=== PATIENT | male | born 1970 | race Caucasian/White ===

== ENCOUNTER 2016-12-28 14:09 | Observation (INO) ==
[~2016-12-28 14:09] MED LIST: ASPIRIN EC 325 MG TABLET PO SCH
--- NOTE | 2016-12-28 14:28 | EKG Report ---
Stationary ECG Study [facility] ER Test Date: 12/28/2016 2:19:27 PM Pat Name: TARAN MCKEON Department: Room: Gender: M Flight Service Agent: : [id number] Requested by: Kevin Theodore Order Number: [id number] Reading MD: NANCY GARZA Intervals [place] Rate: 58 P: 48 FL: 168 QRS: 5 QRSD: 97 T: 31 QT: 396 QTc: 392 Interpretive Statements SINUS BRADYCARDIA NONSPECIFIC T WAVE ABNORMALITY Electronically Signed On 12-28-16 18:01:52 CDT by NANCY GARZA [email or web address]
[2016-12-28] MEDS ORDERED: NITROGLYCERIN SL 0.4 MG TABLET SL PRN (14:54)
[2016-12-28] MEDS ORDERED: ASPIRIN 325 MG TABLET PO STA (14:54)
[2016-12-28] MEDS ORDERED: ENOXAPARIN 100 MG/ML SYRINGE SUBCUT STA (14:54)
[2016-12-28] MEDS ORDERED: ENOXAPARIN 100 MG/ML SYRINGE SUBCUT ONE (14:56)
[2016-12-28] MEDS ORDERED: NITROGLYCERIN 2% OINT 1 INCH/GM PACK TOP ONE (14:57)
[2016-12-28] MEDS ORDERED: ASPIRIN 325 MG TABLET ONE (14:57)
[2016-12-28 15:14] LABS: Basophils % 0.4 % (0.0-0.8); Eosinophils # 0.1 10*3/uL (0.0-0.87); Eosinophils % 0.8 % (0.00-10.9); Hematocrit 43.7 VOL% (42.0-52.0); Hemoglobin 15.7 GM/DL (14.0-18.0); Immature Granulocytes % 0.1 %; Immature Granulocytes Absolute 0.01 #; Lymphocytes # 3.2 10*3/uL (1.4-4.0); Lymphocytes % 40.3 % (21.2-54.2); Mean Corpuscular HGB Conc 35.9 GM/DL (32-36); Mean Corpuscular Hemoglobin 31 PG (27-34); Mean Corpuscular Volume 85.4 FL (87-102); Mean Platelet Volume 9.2 FL (9.6-12.0); Monocytes # 0.6 10*3/uL (0.11-0.8); Monocytes % 7.8 % (1.7-12.7); Neutrophils % 50.6 % (38.7-73.9); Platelet Count 181 T/CUMM (130-400); Red Blood Count 5.12 MC/CUMM (3.8-5.5); Red Cell Distribution Width 12.8 % (9.3-17.3); White Blood Count 7.9 T/CUMM (4-12)
[2016-12-28 15:28] LABS: D-Dimer <= 0.5 MG/L FEU; INR 1.1; PT Patient Result 11.4 SECS
--- NOTE | 2016-12-28 15:31 | XRay Report ---
Portable chest Date: 12/28/2016 Clinical history: Chest pain Comparison: 08/13/2014 Technique: Portable AP sitting chest Findings: The heart is normal in size. Expiratory chest with minimal atelectasis. Chronic volume loss in the distal right clavicle with degenerative changes. Stable mediastinum. Impression: Expiratory chest with minimal atelectasis. PROCEDURE INTERPRETED AT [facility] DEPARTMENT OF RADIOLOGY Final Report Signed by: Dr. Bela You
[2016-12-28] MEDS ORDERED: NITROGLYCERIN SL 0.4 MG TABLET SL ONE (15:32)
[2016-12-28 15:34] LABS: Bilirubin,Total 0.8 MG/DL (0.2-1.0); Calcium 8.5 MG/DL (8.5-10.1); Magnesium 2.2 MG/DL (1.8-2.4); Osmolality,Calculated 278.5 MOS/KG (273-304); Potassium 3.5 MMOL/L (3.5-5.1); Total Protein 6.9 G/DL (6.4-8.3)
[2016-12-28] MEDS ORDERED: ONDANSETRON 4 MG/2 ML VIAL IV PRN (16:05)
[2016-12-28] MEDS ORDERED: MAGNESIUM SULF RIDER 2 GM in PREMIX 1 EACH IV PRN (16:05)
[2016-12-28] MEDS ORDERED: MAGNESIUM SULF RIDER 4 GM in PREMIX 1 EACH IV PRN (16:05)
[2016-12-28] MEDS ORDERED: MORPHINE 2 MG/1 ML SYRINGE IV PRN (16:07)
--- NOTE | 2016-12-28 16:09 | Emergency Department Note ---
Kyle Romero Brittany, am scribing for, and in the presence of, Donaldo Cantu MD 15:14. Pepe Romero Phillip K, MD, personally performed the services described in this documentation, ascribed by Carolyn Wright in my presence, and it is both accurate and complete 609 . Arrival - Arrival Chief Complaint: Arrhythmia/Palpitations Stated Complaint: chest pain,numbness in left side,high bp ED Nursing Triage Note: C/o palpitations and dizziness-onset 0930 this morning. C/o midsternal chest pressure. +SOB and nausea. 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 Patient reports that he was at work climbing stairs when chest pain onset. He describes chest pain as a sharp, stabbing pressure that radiates into his left shoulder, down his left arm. He notes having some bilateral calf pain with numbness and tingling. He states that after resting for 20 minutes he got up and began walking to the [facility]. He states en route he began to become so diaphoretic he soaked his coveralls, he then began to feel weak and numb all over. Patient states that's when he presented to the nurses station and waited for a family member to arrive. Patient states he does have a history of Cardiac Catheterization several years ago and was found to have thickened johnson. He has had no stent placement. Patient at current is still having chest pain. Patient has no other complaint/pain in the ED. Allergies/Adverse Reactions: Allergies Allergy/AdvReac Type Severity Reaction Status Date / Time No Known Allergies Allergy Verified 08/27/16 06:59 Home Medications: Home Medications Medication Instructions Recorded Confirmed Type Lisinopril 20 mg PO DAILY 08/27/16 12/28/16 History Metformin HCl 1,000 mg PO BID 08/27/16 12/28/16 History Multivitamin [Multivitamins] 1 each PO DAILY 08/27/16 12/28/16 History [place]-3 Fatty Acids [Fish Oil 1,000 mg PO DAILY 08/27/16 12/28/16 History Concentrate] Aspirin Tab 325 mg PO DAILY tablet 08/28/16 12/28/16 Rx Pravastatin [Pravachol] 20 mg PO DAILY #30 tablet 08/28/16 12/28/16 Rx glyBURIDE [Diabeta] 5 mg PO BID W/MEALS #60 tablet 08/28/16 12/28/16 Rx Review of System - Review of System 12 point system: reviewed and no additional remarkable complaints except as stated - Review of System Constitutional: Present: diaphoresis, weakness. Absent: chills, fever Eyes: Absent: vision change Head/Ears/Nose/Throat: Present: sore throat. Absent: nasal drainage Respiratory: Present: cough. Absent: respiratory distress Cardiovascular: Present: chest pain Gastrointestinal: Absent: abdominal pain, nausea, vomiting, diarrhea, constipation Genitourinary male: Absent: urgency, dysuria, frequency Musculoskeletal: Present: as per HPI, arm pain, leg pain. Absent: back pain, neck pain Skin: Absent: rash Neurological: Present: headache, numbness, paresthesias Psychiatric: Absent: anxiety, depression Hematological/Lymphatic: Absent: easy bleeding, easy bruising Medical,Surgical,& Family Hx - Medical History Cardio: History of: Hypertension Psychological: No history of: Behavior Problems, Depression Endocrine: History of: Diabetes Mellitus (NIDDM), Dyslipidemia - Surgical History Abdominal Surgeries: Surgical HX of: Appendectomy Orthopedic Surgeries: Surgical HX of;: Orthopedic Surgery (right shoulder) - Family History Family History: Reports;: Family Heart Disease - Social History Smoking Status: Never smoker Frequency of Alcohol Use: None Type of Drug Use: None Exam Vital Signs: Vital Signs Temperature 96.6 F L 12/28/16 14:18 Pulse Rate 66 12/28/16 14:18 Respiratory Rate 18 12/28/16 14:50 Blood Pressure 154/97 12/28/16 14:18 O2 Sat by Pulse Oximetry 96 12/28/16 14:18 - General General appearance: alert, in no apparent distress - Head Head exam: Present: atraumatic, normocephalic, normal inspection - Eye Eye exam: Present: normal appearance, PERRL, EOMI - ENT ENT exam: Present: normal exam, normal oropharynx, mucous membranes moist - Neck Neck exam: Present: normal inspection, full ROM, trachea midline - Chest Chest inspection: Present: normal inspection, symmetric chest wall rise - Respiratory Respiratory exam: Present: normal lung sounds bilaterally. Absent: rales, rhonchi, wheezes - Cardiovascular Cardiovascular exam: Present: regular rate, normal rhythm, normal heart sounds. Absent: murmur, rubs, gallop - Abdominal Exam Abdominal exam: Present: soft, normal bowel sounds. Absent: distention, tenderness - Extremities Exam Extremities exam: Present: full ROM, pedal edema (trace edema to bilateral lower extremities), calf tenderness (bilateral calf tenderness) - Back Exam Back exam: Present: normal inspection - Neurological Exam Neurological exam: Present: alert, oriented X3, CN II-XII intact. Absent: motor sensory deficit - Psychiatric Psychiatric exam: Present: normal affect - Skin Skin exam: Present: warm, dry Course Course Narrative: Patient discussed with Dr. Cerda and he will admit and do a treadmill in the morning. We will get serial isoenzymes tonight. Results - Labs CBC & BMP: 12/28/16 15:01 Lab Results: I have reviewed the patients labs Labs: Laboratory Tests 12/28/16 12/28/16 12/28/16 15:01 15:01 15:01 INR 1.1 PT Patient/Control Mix 11.4 D-Dimer, Quantitative <= 0.5 Sodium 139 Potassium 3.5 Chloride 107 Carbon Dioxide 21 Anion Gap 14.5 BUN 13 Creatinine 0.80 GFR Calculation 138 BUN/Creatinine Ratio 16.00 Glucose 129 H Calculated Osmolality 278.5 Calcium 8.5 Magnesium 2.2 Total Bilirubin 0.80 AST 21 ALT 48 Alkaline Phosphatase 59 Troponin I < 0.015 Total Protein 6.9 Albumin 4.0 Globulin 2.9 Albumin/Globulin Ratio 1.3 Laboratory Tests 12/28/16 15:01 B-Natriuretic Peptide 4 - EKG EKG results: interpreted by ERMD, sinus rhythm (sinus bradycardia with nonspecific ST-T changes) - Diagnostic Findings Procedure: Chest x-ray: report reviewed by me (Expiratory chest with minimal atelectasis.) Disposition Clinical Impression: Chest pain, possible unstable angina, Diabetes, Dyslipidemia, Hypertension Case discussed with: patient Disposition: Still a Patient Condition: Guarded Additional Instructions: Admit to Dr. Cerda.
--- NOTE | 2016-12-28 16:56 | Cardiology History & Physical ---
History of Present Illness History of present illness: Cardiology history and physical 46-year-old man was climbing stairs and carrying 2 buckets [place] the [place] when he developed shortness of breath and midsternal chest pain. He became lightheaded and dizzy. He came here for evaluation. Blood pressures 150/97 on admission currently his blood pressure is 128/82 pulse is 64 and regular O2 sat is 99 on 2 L cannula. First troponin is negative. Chest x-ray is negative. Heart size normal. EKG shows sinus rhythm with preserved airways and ST-T wave changes only. The patient has chronic hypertension takes lisinopril 20 mg daily. He is a type II diabetic and takes metformin 1000 mg twice daily and glyburide 20 mg daily. He also has hypercalcemia and takes fish oil daily and pravastatin 40 mg daily. He had a cardiac cath 4 years ago at [facility] which showed no blockages. His father had a heart attack and from heart failure age 59. He quit smoking 20 years ago. A rare social drinker only. He is 5 feet 10 inches tall weight 230 pounds. Weight has been stable. No history of peptic ulcer disease. No reflux symptoms. Denies melena. The patient was hospitalized in August with a probable TIA. He had a negative CT and MRI of the brain and a negative carotid duplex and echo Doppler. His mother is 77 has hypertension and diabetes. The patient has 13 siblings. One sister from stomach cancer. No sister of ovarian cancer. 3 brothers have hypertension. Allergies none. The patient lives and should booster. Local doctor is Dr. Nicole Choi. Patient is . Sodium 139 potassium 3.5 chloride 107 CO2 21 BUN 13 creatinine 0.80 Glucose 129 magnesium 2.2 BNP 4 troponin negative Blood pressure currently 128/82 pulse is 66 respirations 18 bilateral arcus no xanthelasma no carotid bruit flat neck veins clear lungs. Regular rhythm. No murmur or gallop no chest wall tenderness to palpation. Abdomen obese soft benign femoral pulses 2+ without bruit distal pulses 2+ symmetric no leg edema. Impression Atypical chest pain Multiple risk factors Chronic hypertension Type 2 diabetes Hypercholesterolemia Remote tobacco abuse Positive family history CAD Obesity Plan Admit to telemetry Serial CPKs and troponins. If negative, Exercise cardiac stress test 8 AM tomorrow. his daughter is getting tomorrow. Risk factor modification Home Medications Medication Instructions Recorded Confirmed Type Lisinopril 20 mg PO DAILY 08/27/16 12/28/16 History Metformin HCl 1,000 mg PO BID 08/27/16 12/28/16 History Multivitamin [Multivitamins] 1 each PO DAILY 08/27/16 12/28/16 History [place]-3 Fatty Acids [Fish Oil 1,000 mg PO DAILY 08/27/16 12/28/16 History Concentrate] Aspirin Tab 325 mg PO DAILY tablet 08/28/16 12/28/16 Rx Pravastatin [Pravachol] 20 mg PO DAILY #30 tablet 08/28/16 12/28/16 Rx glyBURIDE [Diabeta] 5 mg PO BID W/MEALS #60 tablet 08/28/16 12/28/16 Rx Allergies Allergy/AdvReac Type Severity Reaction Status Date / Time No Known Allergies Allergy Verified 08/27/16 06:59 Medical,Surgical,& Family Hx - Medical History Cardio: History of: Hypertension Psychological: No history of: Behavior Problems, Depression Endocrine: History of: Diabetes Mellitus (NIDDM), Dyslipidemia - Surgical History Abdominal Surgeries: Surgical HX of: Appendectomy Orthopedic Surgeries: Surgical HX of;: Orthopedic Surgery (right shoulder) - Family History Family History: Reports;: Family Heart Disease - Social History Smoking Status: Never smoker Frequency of Alcohol Use: None Type of Drug Use: None Cardiology Physical Exam - Constitutional Vitals: Vital Signs Temp Pulse Resp BP Pulse Ox 96.6 F L 66 18 154/97 96 12/28/16 16:09 12/28/16 16:09 12/28/16 16:09 12/28/16 16:09 12/28/16 14:18 Result/EKG - Labs CBC & BMP: 12/28/16 15:01
[2016-12-28] MEDS ORDERED: GLUCAGON 1 MG VIAL IM PRN ×2 (18:12)
[2016-12-28] MEDS ORDERED: DEXTROSE 50% 25 GM/50 ML VIAL IV PRN ×2 (18:12)
[2016-12-28] MEDS ORDERED: ZALEPLON 5 MG CAPSULE PO PRN (18:12)
[2016-12-28] MEDS ORDERED: NITROGLYCERIN 2% OINT 1 INCH/GM PACK TOP STA (18:12)
[2016-12-28] MEDS: ENOXAPARIN 100 MG/ML SYRINGE SUBCUT SCH (18:15)
[2016-12-28] MEDS: glyBURIDE 5 MG TABLET PO SCH (18:32)
[2016-12-28] MEDS: SODIUM CHLORIDE 0.45% 1,000 ML IV SCH (18:33)
[2016-12-28 19:27] LABS: Troponin I Only < 0.015 NG/ML (0.00-0.045)
[2016-12-28] MEDS: INSULIN REGULAR 100 UNIT/ML SUBCUT SCH (22:20)
[2016-12-28] MEDS: metFORMIN 500 MG TABLET PO SCH (22:24)
[2016-12-29] MEDS: SODIUM CHLORIDE 0.45% 1,000 ML IV SCH ×2 (01:37→08:58)
[2016-12-29] MEDS: ENOXAPARIN 100 MG/ML SYRINGE SUBCUT SCH (04:23)
[2016-12-29 05:28] LABS: Troponin I Only < 0.015 NG/ML (0.00-0.045)
[2016-12-29] MEDS: INSULIN REGULAR 100 UNIT/ML SUBCUT SCH (08:58)
[2016-12-29] MEDS ORDERED: LISINOPRIL 20 MG TABLET PO SCH (09:00)
[2016-12-29] MEDS ORDERED: OMEGA 3 ACID ETHYL ESTERS 1 GM CAPSULE PO SCH (09:00)
[2016-12-29] MEDS ORDERED: ASPIRIN 325 MG TABLET PO SCH (09:00)
[2016-12-29] MEDS ORDERED: MULTIVITAMIN (CENTRUM) TABLET PO SCH (09:00)
[2016-12-29] MEDS ORDERED: PANTOPRAZOLE 40 MG TABLET PO SCH (09:00)
[2016-12-29] MEDS ORDERED: PRAVASTATIN 20 MG TABLET PO SCH (09:00)
[2016-12-29] MEDS: glyBURIDE 5 MG TABLET PO SCH (09:41)
[2016-12-29] MEDS: metFORMIN 500 MG TABLET PO SCH (09:41)
[2016-12-29 09:45] VITALS: BP 149/90
--- NOTE | 2016-12-29 10:28 | Discharge Summary ---
Hospital Course - Hospital Course Hospital Course: Discharge note 46-year-old man with chest pain while climbing stairs at the [employer] yesterday. Became short of breath and had midsternal chest pain and also was lightheaded. Enzymes negative. EKG benign. Chest x-ray negative. The patient does have risk factors. Chronic hypertension taking lisinopril 20 mg daily. Type II diabetic taking metformin 1000 mg twice daily and glyburide 20 mg daily. Also takes pravastatin and fish oil for hypercholesterolemia. He had a cardiac cath 4 years ago at [facility] which showed no blockages. Father of a heart attack at age 59. He quit smoking 20 years ago. 5 feet 10 inches tall 230 pounds. For further details see admitting history and physical. Telemetry demonstrated steady sinus rhythm. He did receive normal saline hydration. The patient had a normal exercise cardiac stress test. He walked for 9 minutes on a standard Emir protocol and achieved a peak heart 142, which is 84% of expected maximal heart rate. No chest pain or diagnostic EKG changes and no arrhythmias. Tomographic imaging normal. Ventricular function well preserved ejection fraction 58%. This is a low risk scan. The patient is have been reassured. Current chest pain is not cardiac in nature. Lab data showed a sodium of 139 potassium 3.5 chloride 107 CO2 21 BUN 13 creatinine 0.8 glucose 129 magnesium 2.2 BNP 4. Negative troponin. White count 7.9 hemoglobin 15.7 hematocrit 43.7 with negative d-dimer. Impression Normal exercise Cardiolite stress test December 29, 2016 EF 58% Hypertension Type 2 diabetes Hypercholesteremia Remote tobacco abuse Obesity Family history CAD Plan The patient is discharged home today. His daughter is getting at 4 PM today. Continue all home medications. Local care with Dr. Nicole Choi Patient and reassured. Normal exercise cardiac stress test - Time spent with patient Time with patient DS: Greater than 30 minutes Diagnosis - Discharge Diagnosis (1) Obesity Status: Chronic (2) Type 2 diabetes mellitus Status: Chronic (3) Tobacco abuse, in remission Status: Resolved Discharge Plan - Discharge Data Disposition: Disch To Home/Self Care Condition at Discharge: Stable Discharge Diet: diabetic diet, low fat, low cholesterol Activity: resume usual activities as tolerated Hygiene: no restrictions Weight Bearing at Discharge: full weight bearing Driving: no restrictions Contact your physician if you experience:: fever over 101, Difficulty voiding, Redness or swelling, Nausea/Vomiting, Shortness of breath - Discharge Medications Continue [place]-3 Fatty Acids [Fish Oil Concentrate] 1,000 mg PO DAILY Lisinopril 20 mg PO DAILY Pravastatin [Pravachol] 20 mg PO DAILY #30 tablet glyBURIDE [Diabeta] 5 mg PO DAILY W/BREAKFAST Metformin HCl 1,000 mg PO BID Multivitamin [Multivitamins] 1 each PO DAILY Aspirin Tab 325 mg PO DAILY tablet Loratadine Tab [Claritin Tab] 10 mg PO DAILY - Follow Up or Referral - Forms/Instructions Additional Discharge Instructions: Continue all home medications. Local care with Dr. Nicole Choi. I did remind him to stay well-hydrated. Exam - Constitutional Vitals: Period Temp Pulse Resp BP Sys/Herrera Pulse Ox Last 24 Hr 96.3 F-98.5 F 48-76 18-20 105-154/69-97 95-100 General appearance: over weight - Head Head exam: Present: normal inspection - Eye Eye exam: Present: EOMI Pupils: Present: GILLIAN - ENT ENT exam: Present: normal exam - Neck Neck exam: Present: normal inspection - Respiratory Respiratory exam: Present: clear to auscultation bilaterally - Cardiovascular Cardiovascular exam: Present: regular rate and rhythm - GI/Abdominal GI/Abdominal exam: Present: normal bowel sounds - Extremities Exam Extremities exam: Present: normal inspection - Back Exam Back exam: Present: normal inspection - Neurological Exam Neurological exam: Present: alert, oriented X3 - Psychiatric Psychiatric exam: Present: normal affect, normal mood - Skin Skin exam: Present: normal color, warm Discharge Results Procedures and tests throughout hospitalization: Pending Orders 12/29/16 04:00 NM alfred perf SPECT rest or str IN AM 12/29/16 10:03 Troponin,CKMB & Ck Total Q8H 12/29/16 18:12 Troponin,CKMB & Ck Total Q8H Labs on day of discharge: Labs from last 24 hours 12/29/16 12/28/16 12/28/16 04:29 20:46 20:22 POC Glucose 198 H Total Creatine Kinase 137 D CK-MB (CK-2) 1.1 Troponin I < 0.015 < 0.015 12/28/16 18:46 POC Glucose Total Creatine Kinase 202 CK-MB (CK-2) 1.7 Troponin I < 0.015 DS: Provider Date of admission: 12/28/16 16:04 Primary care physician: . No PCP Attending physician on admission: Elier Cerda MD Consults: 12/28/16 16:47 Consult to Pharmacy [CONS] Routine Reason for Pharmacy Consult: Adjust Meds Renal Funct Discharging clinician: Elier Cerda MD Expected date of discharge: 12/29/16
[2016-12-29 10:55] LABS: Troponin I Only < 0.015 NG/ML (0.00-0.045)
--- NOTE | 2016-12-29 15:12 | Nuclear Medicine Report ---
EXERCISE CARDIOLITE GATED SPECT PERFUSION STUDY PROCEDURE: EXERCISE CARDIOLITE GATED SPECT PERFUSION STUDY. INITIAL IMPRESSION: 1. A 46-YEAR-OLD MAN WITH ATYPICAL CHEST PAIN. 2. ABNORMAL ELECTROCARDIOGRAM. FINAL IMPRESSION: NORMAL EXERCISE CARDIOLITE GATED SPECT PERFUSION STUDY. I. DESCRIPTION OF PROCEDURE: The patient received 10.0 mCi of Technetium-99m, Cardiolite IV, and r est imaging was obtained in the routine manner 20 minutes later. The patient then walked for 9 raymond dennis on the standard Emir protocol, and achieved a peak heart rate of 142, which is 84% of his predi cted maximal heart rate. At peak exercise, 30.0 mCi of Technetium-99m, Cardiolite IV was injected, and stress imaging was obtained in the routine manner 20 minutes later. Serial electrocardiograms w ere performed. The initial blood pressure was 130/80, and was 150/80 immediately post exercise. II. RESULTS: The patient had no chest pain or arrhythmias and the test was terminated due to short ness of breath and fatigue. The resting EKG demonstrates normal sinus rhythm with preserved R-waves and ST-T wave changes. With exercise, no diagnostic EKG changes occurred. No arrhythmias. Tomographic imaging demonstrates homogeneous uptake of radioisotope in all segments. There is no ev idence for ischemia or scar. Gated SPECT imaging demonstrates normal wall motion and thickening in all segments. The calculated ejection fraction is 58%. III. FINAL IMPRESSION: 1. CLINICALLY AND ELECTROCARDIOGRAPHICALLY NEGATIVE. 2. SCINTIGRAPHICALLY NORMAL PERFUSION STUDY. IV. DISPOSITION: The patient should be reassured regarding the lack of any evidence for significan t coronary artery disease at this time. He had no chest pain or diagnostic EKG changes and tomograp hic imaging is normal. In addition, ventricular function is well preserved with ejection fraction o f 58%. This is a low-risk scan. Continued medical therapy and risk factor modification recommended . Procedure performed and interpreted at [facility] Department of Radiology.
== END 2016-12-29 11:16 | disposition home or self-care (01) ==
LOC: N.ED 14:09 → N.EDINP 14:09 → N.TELES 18:11
PROVIDERS: ADMIT Internal Medicine Cardiovascular Disease; ATTEND Internal Medicine Cardiovascular Disease

== ENCOUNTER 2019-03-16 12:04 | Observation (INO) ==
[2019-03-16 12:52] LABS: Basophils % 0.5 % (0.0-0.8); Eosinophils % 0.2 % (0.00-10.9); Hematocrit 50.9 VOL% (42.0-52.0); Hemoglobin 17.6 GM/DL (14.0-18.0); Immature Granulocytes % 0.2 %; Immature Granulocytes Absolute 0.02 #; Lymphocytes # 2.3 10*3/uL (1.4-4.0); Lymphocytes % 28.3 % (21.2-54.2); Mean Corpuscular HGB Conc 34.6 GM/DL (32-36); Mean Platelet Volume 9.5 FL (9.6-12.0); Monocytes % 8.2 % (1.7-12.7); Neutrophils % 62.6 % (38.7-73.9); Platelet Count 207 T/CUMM (130-400); Red Blood Count 5.85 MC/CUMM (3.8-5.5); Red Cell Distribution Width 12.9 % (9.3-17.3); White Blood Count 8.2 T/CUMM (4-12)
[2019-03-16 13:14] LABS: Albumin 4.5 G/DL (3.4-5.0); Bilirubin,Total 0.7 MG/DL (0.2-1.0); Calcium 9.9 MG/DL (8.5-10.1); Osmolality,Calculated 274.8 MOS/KG (273-304); Total Protein 8.1 G/DL (6.4-8.3)
[2019-03-16] MEDS ORDERED: NITROGLYCERIN 2% OINT 1 INCH/GM PACK TOP STA (15:47)
[2019-03-16] MEDS ORDERED: ASPIRIN 325 MG TABLET PO STA (15:47)
[2019-03-16] MEDS ORDERED: ONDANSETRON 4 MG/2 ML VIAL IV STA (15:47)
[2019-03-16] MEDS ORDERED: MORPHINE 4 MG/1 ML VIAL IV STA (15:47)
[2019-03-16] MEDS ORDERED: ALUM/MAG/SIMETH/LIDO VISC 1:1 30 ML BOTTLE PO STA (15:47)
[2019-03-16] MEDS ORDERED: ONDANSETRON 4 MG/2 ML VIAL IV PRN (16:07)
[2019-03-16] MEDS ORDERED: oxyCODONE/ACETAMINOPHEN 5-325 MG TABLET PO PRN (16:07)
[2019-03-16] MEDS ORDERED: MORPHINE 4 MG/1 ML VIAL IV PRN (16:07)
[2019-03-16] MEDS ORDERED: ZALEPLON 5 MG CAPSULE PO PRN (16:07)
[2019-03-16] MEDS ORDERED: GLUCAGON 1 MG VIAL IM PRN (16:11)
[2019-03-16] MEDS ORDERED: DEXTROSE 10% 25 GM/250 ML BAG IV PRN (16:11)
[2019-03-16] MEDS: INSULIN REGULAR 100 UNIT/ML SUBCUT SCH ×2 (16:45→22:44)
[2019-03-16] MEDS: ENOXAPARIN 40 MG/0.4 ML SYRINGE SUBCUT SCH (16:46)
[2019-03-16 19:11] LABS: Risk Ratio 4.32; VLDL CHOLESTEROL 35.4 MG/DL
[2019-03-16] MEDS: GABAPENTIN 100 MG CAPSULE PO SCH (23:10)
[2019-03-16] MEDS: NITROGLYCERIN 2% OINT 1 INCH/GM PACK TOP SCH ×2 (23:10→23:16)
[2019-03-17] MEDS: NITROGLYCERIN 2% OINT 1 INCH/GM PACK TOP SCH ×4 (07:26→23:24)
[2019-03-17] MEDS: INSULIN REGULAR 100 UNIT/ML SUBCUT SCH ×4 (07:41→23:18)
[2019-03-17] MEDS: ASPIRIN 325 MG TABLET PO SCH (09:39)
[2019-03-17] MEDS: LISINOPRIL 20 MG TABLET PO SCH (09:39)
[2019-03-17] MEDS: LORATADINE 10 MG TABLET PO SCH (09:40)
[2019-03-17] MEDS: SIMVASTATIN 10 MG TABLET PO SCH (09:40)
[2019-03-17] MEDS: GABAPENTIN 100 MG CAPSULE PO SCH ×2 (09:40→23:19)
[2019-03-17] MEDS: MULTIVITAMIN (CENTRUM) TABLET PO SCH (09:40)
[2019-03-17] MEDS: ENOXAPARIN 40 MG/0.4 ML SYRINGE SUBCUT SCH (16:10)
[2019-03-18 04:41] LABS: Basophils % 0.4 % (0.0-0.8); Eosinophils # 0.1 10*3/uL (0.0-0.87); Eosinophils % 1.4 % (0.00-10.9); Hematocrit 45.8 VOL% (42.0-52.0); Hemoglobin 16.1 GM/DL (14.0-18.0); Immature Granulocytes % 0.3 %; Immature Granulocytes Absolute 0.02 #; Lymphocytes # 2.6 10*3/uL (1.4-4.0); Lymphocytes % 36.4 % (21.2-54.2); Mean Corpuscular HGB Conc 35.2 GM/DL (32-36); Mean Corpuscular Volume 87.6 FL (87-102); Mean Platelet Volume 9.6 FL (9.6-12.0); Monocytes % 11.9 % (1.7-12.7); Neutrophils % 49.6 % (38.7-73.9); Platelet Count 179 T/CUMM (130-400); Red Blood Count 5.23 MC/CUMM (3.8-5.5); Red Cell Distribution Width 12.9 % (9.3-17.3); White Blood Count 7.1 T/CUMM (4-12)
[2019-03-18 04:50] LABS: Calcium 8.6 MG/DL (8.5-10.1); Osmolality,Calculated 281.7 MOS/KG (273-304)
[2019-03-18] MEDS: NITROGLYCERIN 2% OINT 1 INCH/GM PACK TOP SCH ×2 (06:00→12:21)
[2019-03-18] MEDS: INSULIN REGULAR 100 UNIT/ML SUBCUT SCH ×2 (08:59→12:21)
[2019-03-18] MEDS: GABAPENTIN 100 MG CAPSULE PO SCH (09:00)
[2019-03-18] MEDS: ASPIRIN 325 MG TABLET PO SCH (09:00)
[2019-03-18] MEDS: MULTIVITAMIN (CENTRUM) TABLET PO SCH (09:00)
[2019-03-18] MEDS: LISINOPRIL 20 MG TABLET PO SCH (09:00)
[2019-03-18] MEDS: SIMVASTATIN 10 MG TABLET PO SCH (09:00)
[2019-03-18] MEDS: LORATADINE 10 MG TABLET PO SCH (09:00)
[2019-03-18 11:45] VITALS: BP 118/68
== END 2019-03-18 14:12 | disposition home or self-care (01) ==
LOC: N.ED 12:04 → N.EDINP 12:04 → SUATTDRO 16:07 → N.TELES 19:46
PROVIDERS: ADMIT Internal Medicine Nephrology; ATTEND Internal Medicine